=== PATIENT | female | born 1930 | race Caucasian/White ===

== ENCOUNTER 2017-02-24 08:06 | Emergency (ER) | payer MEDICARE, BC, OTHER ==
--- NOTE | 2017-02-24 08:15 | ER Document Report ---
ED General - General Stated Complaint: FALL HIP PAIN Time Seen by Provider: 02/24/17 08:13 Mode of Arrival: Medic Information source: Patient, Emergency Med Personnel Notes: 86-year-old female after a mechanical fall complaining of head injury mild neck pain left hip pain and left ankle pain. Patient notes she was in too much pain to stand. Denies any other injuries TRAVEL OUTSIDE OF THE [place] IN LAST 30 DAYS: No - HPI Onset: Just prior to arrival Onset/Duration: Sudden Quality of pain: Achy Severity: Mild Pain Level: 1 Associated symptoms: Body/muscle aches Exacerbated by: Movement Relieved by: Denies Similar symptoms previously: No Recently seen / treated by doctor: No - Related Data Allergies/Adverse Reactions: chlorpheniramine maleate [From Ornade] Allergy (Verified 02/24/17 09:30) codeine [Codeine] Allergy (Verified 02/24/17 09:30) itching meclizine HCl [From Antivert] Allergy (Verified 02/24/17 09:30) phenylpropanolamine HCl [From Ornade] Allergy (Verified 02/24/17 09:30) propoxyphene HCl [From Darvon] Allergy (Verified 02/24/17 09:30) tetracycline [Tetracycline] Allergy (Verified 02/24/17 09:30) Any Verts Allergy (Uncoded 02/24/17 09:30) Past Medical History - Social History Smoking Status: Never Smoker Cigarette use (# per day): No Chew tobacco use (# tins/day): No Smoking Education Provided: No Family History: Reviewed & Not Pertinent, Other - Past Medical History Cardiac Medical History: Reports: Hx Atrial Fibrillation, Hx Heart Attack - 1996 ?STENT, Hx Hypertension - MEDS Denies: Hx Heart Murmur Pulmonary Medical History: Reports: Hx Bronchitis, Hx Pneumonia Denies: Hx Asthma, Hx Respiratory Failure, Hx Sleep Apnea, Hx Tuberculosis Neurological Medical History: Denies: Hx Cerebrovascular Accident, Hx Seizures Endocrine Medical History: Reports: Hx Diabetes Mellitus Type 1, Hx Diabetes Mellitus Type 2 Renal/ Medical History: Malignancy Medical History: GI Medical History: Denies: Hx Hepatitis, Hx Hiatal Hernia, Hx Ulcer Musculoskeltal Medical History: Reports Hx Arthritis Psychiatric Medical History: Reports: Hx Depression Traumatic Medical History: Infectious Medical History: Denies: Hx Hepatitis Past Surgical History: Reports: Hx Appendectomy, Hx Cardiac Catheterization, Hx Cardiac Surgery - Cath, Hx Cholecystectomy, Hx Hysterectomy. Denies: Hx Mastectomy, Hx Open Heart Surgery, Hx Pacemaker - Immunizations Hx Diphtheria, Pertussis, Tetanus Vaccination: Yes Hx Pneumococcal Vaccination: 10/04/09 Review of Systems - Review of Systems Notes: PHYSICAL EXAMINATION: GENERAL: Well-appearing, well-nourished and in no acute distress. C collar in place. GCS 15 HEAD: Left lateral occipital hematomas 2 EYES: Pupils equal round and reactive to light, extraocular movements intact, sclera anicteric, conjunctiva are normal. ENT: Nares patent, oropharynx clear without exudates. Moist mucous membranes. No hemanotympanum . No blood in nares. No dental fracture NECK: Normal range of motion, supple without lymphadenopathy. Trachea midline LUNGS: Breath sounds clear to auscultation bilaterally and equal. No wheezes rales or rhonchi. HEART: Regular rate and rhythm without murmurs. Pulses intact all throughout. ABDOMEN: Soft, nontender, nondistended abdomen. No guarding, no rebound. No masses appreciated. Musculoskeletal: Left hip is tender no inversion or eversion of left lower extremity. Tenderness of the left ankle with mild edema no obvious deformity NEUROLOGICAL: Cranial nerves grossly intact. Normal speech, normal gait. Normal sensory, motor, and reflex exams. PSYCH: Normal mood, normal affect. SKIN: Warm, No active bleeding U/S fast exam notes no obvious free fluid but this is a nondiagnostic evaluation Physical Exam - Vital signs Vitals: Resp 18 02/24/17 08:10 Course - Re-evaluation Re-evalutation: 02/24/17 08:36 Lab work imaging is pending at this time 02/24/17 11:06 imaging noted so significant abnormaltiy, old cva noted, family made aware will dc home as patient feels much better and wishes to go home After performing a Medical Screening Examination, I estimate there is LOW risk for ACUTE APPENDICITIS, BOWEL OBSTRUCTION, ACUTE CHOLECYSTITIS, PERFORATED DIVERTICULITIS, INCARCERATED HERNIA, PANCREATITIS, PELVIC INFLAMMATORY DISEASE, PERFORATED ULCER, ECTOPIC , or TUBO-OVARIAN ABSCESS, thus I consider the discharge disposition reasonable. Also, there is no evidence or peritonitis , sepsis, or toxicity. I have reevaluated this patient multiple times and no significant life threatening changes are noted. The patient and I have discussed the diagnosis and risks, and we agree with discharging home with close follow-up with the understanding that symptoms and presentations can change. We also discussed returning to the Emergency Department immediately if new or worsening symptoms occur. We have discussed the symptoms which are most concerning (e.g., bloody stool, fever, changing or worsening pain, vomiting) that necessitate immediate return. - Vital Signs Vital signs: Temp Pulse Resp BP Pulse Ox 98.1 F 18 137/51 H 93 02/24/17 08:16 02/24/17 10:01 02/24/17 10:01 02/24/17 10:01 - Laboratory Result Diagrams: 02/24/17 08:40 02/24/17 08:40 Laboratory results interpreted by me: 02/24/17 02/24/17 08:40 08:40 RDW 16.6 H Plt Count 103 L Lymphocytes % 12.9 L Glucose 219 H - Diagnostic Test Radiology reviewed: Image reviewed, Reports reviewed Discharge - Discharge Clinical Impression: Hip pain, left Ankle pain, left Qualifiers: Chronicity: acute Qualified Code(s): M25.572 - Pain in left ankle and joints of left foot Fall Qualifiers: Encounter type: initial encounter Qualified Code(s): W19.XXXA - Unspecified fall, initial encounter Atrial fibrillation Qualifiers: Atrial fibrillation type: chronic Qualified Code(s): I48.2 - Chronic atrial fibrillation Condition: Stable Disposition: HOME, SELF-CARE Instructions: Vladimir Wrap ([facility]) Prescriptions: Hydrocodone/Acetaminophen [[place] 5-325 mg Tablet] 1 tab PO Q6 #20 tablet Referrals: AL CROW MD [Primary Care Provider] - Follow up tomorrow
[2017-02-24] MEDS ORDERED: HYDROCODONE/ACETAMINOPHEN 5-325 MG TABLET PO ONE (08:16)
[2017-02-24 08:47] LABS: ABSOLUTE BASOPHILS # (AUTO) 0.1 10^3/uL (0.0-0.2); ABSOLUTE LYMPHOCYTES (AUTO) 1.3 10^3/uL (0.5-4.7); ABSOLUTE MONOCYTES (AUTO) 1.1 10^3/uL (0.1-1.4); ABSOLUTE NEUT (AUTO) 7.7 10^3/uL (1.7-8.2); BASOPHILS % (AUTO) 0.8 % (0-2); EOSINOPHILS % (AUTO) 0.2 % (0-6); HEMATOCRIT 36.7 % (36.0-47.0); HEMOGLOBIN 12.4 g/dL (12.0-15.5); HGB HCT DIFFERENCE 0.5; LYMPHOCYTES % (AUTO) 12.9 % (13-45); MEAN CORPUSCULAR HEMOGLOBIN 28.5 pg (27.0-33.4); MEAN CORPUSCULAR HGB CONC 33.8 g/dL (32.0-36.0); MEAN CORPUSCULAR VOLUME 84 fl (80-97); MONOCYTES % (AUTO) 10.7 % (3-13); RED BLOOD COUNT 4.36 10^6/uL (3.72-5.28); RED CELL DISTRIBUTION WIDTH 16.6 % (11.5-14.0); SEGMENTED NEUTROPHILS % (AUTO) 75.4 % (42-78); WHITE BLOOD COUNT 10.2 10^3/uL (4.0-10.5)
[2017-02-24 09:06] LABS: ALANINE AMINOTRANSFERASE 30 U/L (9-52); ALKALINE PHOSPHATASE 46 U/L (38-126); ANION GAP 12 (5-19); ASPARTATE AMINO TRANSFERASE 22 U/L (14-36); BILIRUBIN,DIRECT 0.4 mg/dL (0.0-0.4); BILIRUBIN,TOTAL 0.7 mg/dL (0.2-1.3); BLOOD UREA NITROGEN 17 mg/dL (7-20); CALCIUM 9.8 mg/dL (8.4-10.2); CARBON DIOXIDE 26 mmol/L (22-30); CHLORIDE 103 mmol/L (98-107); CREATININE RESULT 0.65 mg/dL (0.52-1.25); GLUCOSE 219 mg/dL (75-110); POTASSIUM 4.1 mmol/L (3.6-5.0); SODIUM 140.5 mmol/L (137-145); TOTAL PROTEIN 7.7 g/dL (6.3-8.2)
--- NOTE | 2017-02-24 09:20 | RADIOLOGY REPORT (SQ) ---
EXAM DESCRIPTION: ANKLE LEFT COMPLETE COMPLETED DATE/TIME: 02/24/2017 9:08 am REASON FOR STUDY: fall COMPARISON: None. NUMBER OF VIEWS: Three views. TECHNIQUE: AP, lateral, and oblique radiographic images acquired of the left ankle. LIMITATIONS: None. FINDINGS: MINERALIZATION: Normal. BONES: No acute fracture or dislocation. No worrisome bone lesions. JOINTS: No effusions. SOFT TISSUES: Soft tissue swelling. No foreign body. OTHER: No other significant finding. IMPRESSION: SOFT TISSUE SWELLING. NO ACUTE BONY FINDINGS. TECHNICAL DOCUMENTATION: JOB ID: [id number] [employer]- All Rights Reserved
--- NOTE | 2017-02-24 10:29 | RADIOLOGY REPORT (SQ) ---
EXAM DESCRIPTION: CT CERVICAL SPINE WITHOUT COMPLETED DATE/TIME: 02/24/2017 9:37 am REASON FOR STUDY: fall COMPARISON: None. TECHNIQUE: Axial images acquired through the cervical spine without intravenous contrast. Images re viewed with lung, soft tissue and bone windows. Reconstructed coronal and sagittal MPR images review ed. Images stored on PACS. All CT scanners at this facility use dose modulation, iterative reconstruction, and/or weight based d osing when appropriate to reduce radiation dose to as low as reasonably achievable (ALARA). [facility]: Dose Right [facility]: CareDose [facility]: Dose Right [facility]: Teradose 4D [facility]: Genemation RADIATION DOSE: 19.63 mGy. LIMITATIONS: None. FINDINGS: ALIGNMENT: Anatomic. MINERALIZATION: Normal. VERTEBRAL BODIES: No fractures or dislocation. Incidental cortical bone island in the C1 vertebra. DISCS: Multilevel disc space narrowing with osteophytes. FACETS, LATERAL MASSES, POSTERIOR ELEMENTS: Facet arthropathy. No fractures. No dislocation. No ac osage findings. HARDWARE: None in the spine. VISUALIZED RIBS: No fractures. LUNG APICES AND SOFT TISSUES: No significant or acute findings. OTHER: No other significant finding. IMPRESSION: CHRONIC DEGENERATIVE CHANGES. NO ACUTE FINDINGS. TECHNICAL DOCUMENTATION: JOB ID: [id number] Quality ID # [id number]: Final reports with documentation of one or more dose reduction techniques (e.g., Au tomated exposure control, adjustment of the mA and/or kV according to patient size, use of iterative reconstruction technique) 2010 [employer]- All Rights Reserved
--- NOTE | 2017-02-24 10:33 | RADIOLOGY REPORT (SQ) ---
EXAM DESCRIPTION: CT HEAD WITHOUT COMPLETED DATE/TIME: 02/24/2017 9:36 am REASON FOR STUDY: fall COMPARISON: 10/26/2013. TECHNIQUE: Axial images acquired through the brain without intravenous contrast. Images reviewed wi th bone, brain and subdural windows. Images stored on PACS. All CT scanners at this facility use dose modulation, iterative reconstruction, and/or weight based d osing when appropriate to reduce radiation dose to as low as reasonably achievable (ALARA). [facility]: Dose Right [facility]: CareDose [facility]: Dose Right [facility]: Teradose 4D [facility]: Cynvec RADIATION DOSE: 64.61 mGy. LIMITATIONS: None. FINDINGS: VENTRICLES: Normal size and contour. CEREBRUM: No masses. No hemorrhage. No midline shift. Normal rodriguez/white matter differentiation. F ocal area of decreased attenuation in the right frontal lobe. CEREBELLUM: No masses. No hemorrhage. No alteration of density. No evidence for acute infarction. EXTRAAXIAL SPACES: No fluid collections. No masses. ORBITS AND GLOBE: No intra- or extraconal masses. Normal contour of globe without masses. CALVARIUM: No fracture. PARANASAL SINUSES: No fluid or mucosal thickening. SOFT TISSUES: No mass or hematoma. OTHER: No other significant finding. IMPRESSION: FOCAL AREA OF DECREASED ATTENUATION IN THE RIGHT FRONTAL LOBE. THIS HAS APPEARANCE OF A N OLD INFARCT ALTHOUGH NOT PRESENT IN OCTOBER 2013. NO ACUTE TRAUMATIC FINDINGS. TECHNICAL DOCUMENTATION: JOB ID: [id number] Quality ID # 436: Final reports with documentation of one or more dose reduction techniques (e.g., Au tomated exposure control, adjustment of the mA and/or kV according to patient size, use of iterative reconstruction technique) 2010 [employer]- All Rights Reserved
--- NOTE | 2017-02-24 10:36 | RADIOLOGY REPORT (SQ) ---
EXAM DESCRIPTION: CT CHEST WITHOUT COMPLETED DATE/TIME: 02/24/2017 9:38 am REASON FOR STUDY: fall COMPARISON: 08/14/2016. TECHNIQUE: CT scan performed of the chest without intravenous contrast. Images reviewed with lung, soft tissue and bone windows. Reconstructed coronal and sagittal MPR images reviewed. All images st ored on PACS. All CT scanners at this facility use dose modulation, iterative reconstruction, and/or weight based d osing when appropriate to reduce radiation dose to as low as reasonably achievable (ALARA). [facility]: Dose Right [facility]: CareDose [facility]: Dose Right [facility]: Teradose 4D [facility]: Celtaxsys RADIATION DOSE: 7.48 mGy. LIMITATIONS: No technical limitations. FINDINGS: LUNGS AND PLEURA: Stable chronic scarring. No masses, infiltrates, pneumothorax. No pleu ral effusions, calcifications. HILAR AND MEDIASTINAL STRUCTURES: No identified masses or abnormal nodes. No obvious aneurysm. HEART AND VASCULAR STRUCTURES: No aneurysm. No pericardial effusion. UPPER ABDOMEN: No significant findings. Limited exam. THYROID AND OTHER SOFT TISSUES: No masses. No adenopathy. BONES: No significant finding. HARDWARE: None in the chest. OTHER: No other significant findings. IMPRESSION: STABLE CHRONIC SCARRING. NO ACUTE FINDING ON NON-CONTRASTED CHEST CT. TECHNICAL DOCUMENTATION: JOB ID: [id number] Quality ID # [id number]: Final reports with documentation of one or more dose reduction techniques (e.g., Au tomated exposure control, adjustment of the mA and/or kV according to patient size, use of iterative reconstruction technique) 2010 [employer]- All Rights Reserved
--- NOTE | 2017-02-24 10:42 | RADIOLOGY REPORT (SQ) ---
EXAM DESCRIPTION: CT ABD/PELVIS NO ORAL OR IV COMPLETED DATE/TIME: 02/24/2017 9:36 am REASON FOR STUDY: FALL left hip pain COMPARISON: 09/11/2013. TECHNIQUE: CT scan of the abdomen and pelvis performed without intravenous or oral contrast. Images reviewed with lung, soft tissue, and bone windows. Reconstructed coronal and sagittal MPR images revi ewed. All images stored on PACS. All CT scanners at this facility use dose modulation, iterative reconstruction, and/or weight based d osing when appropriate to reduce radiation dose to as low as reasonably achievable (ALARA). [facility]: Dose Right [facility]: CareDose [facility]: Dose Right [facility]: Teradose 4D [facility]: Streamline RADIATION DOSE: 8mGy. LIMITATIONS: None. FINDINGS: LOWER CHEST: No significant findings. No nodules or infiltrates. NON-CONTRASTED LIVER, SPLEEN, ADRENALS: Evaluation limited by lack of IV contrast. No identified sign ificant masses. PANCREAS: No masses. No peripancreatic inflammatory changes. GALLBLADDER: Surgically absent. RIGHT KIDNEY AND URETER: No suspicious masses. Assessment limited by lack of IV contrast. No signif icant calcifications. Stable extrarenal pelvis. No hydronephrosis or hydroureter. LEFT KIDNEY AND URETER: Stable cortical cyst. No suspicious masses. Assessment limited by lack of IV contrast. No significant calcifications. Stable extrarenal pelvis. No hydronephrosis or hydrour eter. AORTA AND RETROPERITONEUM: No aneurysm. No retroperitoneal masses or adenopathy. BOWEL AND PERITONEAL CAVITY: Colonic diverticulosis. No obvious masses or inflammatory changes. No f ree fluid. APPENDIX: Surgically absent. PELVIS, BLADDER, AND ABDOMINAL WALL:No abnormal masses. No free fluid. Bladder normal. BONES: No significant findings. Degenerative changes in the spine. OTHER: No other significant finding. IMPRESSION: 1. COLONIC DIVERTICULOSIS. NO CT FINDINGS OF ACUTE DIVERTICULITIS. 2. STABLE CORTICAL CYST IN THE LEFT KIDNEY. 3. CHRONIC DEGENERATIVE CHANGES IN THE LUMBAR SPINE. 4. NO ACUTE FINDINGS. TECHNICAL DOCUMENTATION: JOB ID: [id number] Quality ID # [id number]: Final reports with documentation of one or more dose reduction techniques (e.g., Au tomated exposure control, adjustment of the mA and/or kV according to patient size, use of iterative reconstruction technique) 2010 [employer]- All Rights Reserved
[2017-02-24 11:41] VITALS: BP 122/54
--- NOTE | 2017-02-24 13:36 | EKG REPORT ---
SEVERITY:- ABNORMAL ECG - ATRIAL FIBRILLATION : Confirmed by: Krishna Nathan MD 24-Feb-2017 13:34:28
== END 2017-02-24 11:56 | disposition home or self-care (01) ==
LOC: ER 08:06
DX: M25.552 Pain in left hip (principal); M25.572 Pain in left ankle and joints of left foot; S09.90XA Unspecified injury of head, initial encounter; M54.2 Cervicalgia; I48.2 Chronic atrial fibrillation; W19.XXXA Unspecified fall, initial encounter
CPT/HCPCS: 93005; 99284; 36415; 82962; 85025; 80053; 73610; 70450; 71250; 72125; 74176; 93010; A9270

== ENCOUNTER → 2017-03-05 | Outpatient (CLI) | payer MEDICARE, BC, OTHER ==
--- NOTE | 2017-03-05 09:37 | RADIOLOGY REPORT (SQ) ---
EXAM DESCRIPTION: MRI HEAD WITHOUT COMPLETED DATE/TIME: 03/05/2017 9:11 am REASON FOR STUDY: CEREBRAL INFARCTION, UNSPEC (I63.9) I63.9 CEREBRAL INFARCTION, UNSPECIFIED M48.06 SPINAL STENOSIS, LUMBAR REGION COMPARISON: None. TECHNIQUE: Multiplanar imaging includes non-contrasted T1, T2, FLAIR, and Diffusion with ADC map seq uences. Images stored on PACS. LIMITATIONS: None. FINDINGS: ANATOMY: No anomalies. Normal vascular flow voids. Pituitary fossa normal. CSF SPACES: Normal in size and contour. No hemorrhage. CEREBRUM: Hemosiderin staining associated with old watershed infarct along the right sylvian fissure. A few high-signal intensity lesions scattered throughout the white matter on FLAIR imaging with dis tribution suggesting chronic micro-vascular ischemic change. Sulci and gyri normal in size and conto ur. No evidence of hemorrhage, mass or extraaxial fluid collection. POSTERIOR FOSSA: No signal alteration. No hemorrhage. No edema, masses or mass effect. Internal cachorro tory canals, cerebello-pontine angles, mastoids normal. DIFFUSION: Negative for acute or sub-acute infarction. ORBITS: No masses. Globes normal. PARANASAL SINUSES: No fluid levels. Mucosa normal. OTHER: No other significant finding. IMPRESSION: Old right MCA territory infarct. No acute findings. TECHNICAL DOCUMENTATION: JOB ID: [id number] [employer]- All Rights Reserved
--- NOTE | 2017-03-05 10:27 | RADIOLOGY REPORT (SQ) ---
EXAM DESCRIPTION: MRI LUMBAR SPINE WITHOUT COMPLETED DATE/TIME: 03/05/2017 9:11 am REASON FOR STUDY: SPINAL STENOSIS, LUMBAR REGION (M48.06) I63.9 CEREBRAL INFARCTION, UNSPECIFIED M4 8.06 SPINAL STENOSIS, LUMBAR REGION COMPARISON: 07/13/2011 TECHNIQUE: Sagittal and Axial imaging includes T1, T2, STIR and gradient echo sequences. Coronal T2/ HASTE imaging. LIMITATIONS: Patient motion. FINDINGS: VISUALIZED UPPER ABDOMEN: Limited evaluation. No acute or suspicious findings suggested. SEGMENTATION: No transitional anatomy. The lowest well-developed disc space is labeled L5-S1. ALIGNMENT: Unchanged moderate convex right scoliosis. Grade 1 spondylolisthesis L1-2 and L4-5. VERTEBRAE: Intact. BONE MARROW: Normal. No marrow replacement or reactive changes. DISC SIGNAL: Desiccation multiple levels. POSTERIOR ELEMENTS: Intact. HARDWARE: None in the spine. CORD AND CONUS: Normal in size and signal intensity. Conus at the appropriate level. SOFT TISSUES: No aortic aneurysm seen. No bulky retroperitoneal adenopathy or mass. No paraspinal mas s or fluid. L1-L2: Ventral impression on the thecal sac due to disc osteophyte complex. L2-L3: Ventral impression on the thecal sac due to disc osteophyte complex. L3-L4: Chronic endplate change. Ventral and dorsal impression on the thecal sac due to disc osteophy te complex, ligament thickening and facet arthropathy. Narrowing of the right lateral recess. Disc material contacts the exiting left L3 nerve root in the neural foramen. L4-L5: Ventral and dorsal nerve root contact due to disc osteophyte complex, ligament thickening and facet arthropathy. Disc material contacts the exiting right L4 nerve root in the neural foramen. L5-S1: Disc bulge and facet arthropathy. Mild narrowing spinal canal. Mild right neural foraminal n arrowing. LOWER THORACIC: Incompletely imaged. No stenosis seen. SACRUM: Visualized upper sacrum intact. OTHER: No other significant findings. IMPRESSION: Spondylosis, facet arthropathy and malalignment. Spinal stenosis at multiple levels, mo st severe at L4-5. TECHNICAL DOCUMENTATION: JOB ID: [id number] [employer]- All Rights Reserved
== END ==
LOC: RAD 07:17
PROVIDERS: ATTEND Internal Medicine
DX: I63.9 Cerebral infarction, unspecified (principal); M48.06 Spinal stenosis, lumbar region
CPT/HCPCS: 70551; 72148

== ENCOUNTER 2017-09-29 04:09 | Observation (INO) | payer MEDICARE, BC, OTHER ==
[2017-09-29] MEDS ORDERED: ASPIRIN 81 MG TABLET, CHEWABLE PO ONE (04:14)
[2017-09-29] MEDS ORDERED: ACETAMINOPHEN 325 MG TABLET PO ONE (04:30)
[2017-09-29 04:32] LABS: ABSOLUTE BASOPHILS # (AUTO) 0.1 10^3/uL (0.0-0.2); ABSOLUTE EOSINOPHILS # (AUTO) 0.1 10^3/uL (0.0-0.6); ABSOLUTE LYMPHOCYTES (AUTO) 2.2 10^3/uL (0.5-4.7); ABSOLUTE MONOCYTES (AUTO) 1.2 10^3/uL (0.1-1.4); ABSOLUTE NEUT (AUTO) 3.6 10^3/uL (1.7-8.2); BASOPHILS % (AUTO) 1.4 % (0-2); EOSINOPHILS % (AUTO) 0.8 % (0-6); HEMATOCRIT 39.4 % (36.0-47.0); HEMOGLOBIN 13.3 g/dL (12.0-15.5); MEAN CORPUSCULAR HEMOGLOBIN 28.5 pg (27.0-33.4); MEAN CORPUSCULAR HGB CONC 33.8 g/dL (32.0-36.0); MEAN CORPUSCULAR VOLUME 84 fl (80-97); MONOCYTES % (AUTO) 16.4 % (3-13); PLATELET COUNT 126 10^3/uL (150-450); RED BLOOD COUNT 4.66 10^6/uL (3.72-5.28); RED CELL DISTRIBUTION WIDTH 16.5 % (11.5-14.0); SEGMENTED NEUTROPHILS % (AUTO) 50.4 % (42-78); TOTAL CELLS COUNTED % (AUTO) 100 %; WHITE BLOOD COUNT 7.2 10^3/uL (4.0-10.5)
[2017-09-29] MEDS ORDERED: NITROGLYCERIN 2% OINTMENT 1 GM PACKET TP ONE (04:34)
--- NOTE | 2017-09-29 04:38 | ER Document Report ---
ED Cardiac - General Chief Complaint: Chest Pain Stated Complaint: CHEST PAIN Time Seen by Provider: 09/29/17 04:17 Mode of Arrival: Medic Information source: Patient Notes: Patient reports that she was lying in bed and developed chest pain around 130 this evening. Patient took a nitroglycerin tablet at home and called EMS. Patient states that EMS gave her an additional 2 tablets of nitroglycerin. Patient's chest pain initially was a 5 and is currently at a level 1. Patient reports some nausea but denies any vomiting or diarrhea. Patient denies any cough or recent cold symptoms. Patient does report a distant history of VT 20 years ago. TRAVEL OUTSIDE OF THE [place] IN LAST 30 DAYS: No - HPI Patient complains to provider of: Chest pain. denies: Shortness of breath Chest pain location: Substernal Quality of pain: Achy Severity now: Mild Severity at worst: Severe Pain level currently: 1 Chest pain precipitating factors: At Rest Cardiac risk factors: Diabetes, Hypertension, Hx VT Associated symptoms: Nausea/vomiting. denies: Back pain, Edema, Headache, Neck pain, Shortness of breath Exacerbated by: Denies Relieved by: Nothing Similar symptoms previously: Yes Recently seen / treated by doctor: No - Related Data Allergies/Adverse Reactions: chlorpheniramine maleate [From Ornade] Allergy (Verified 02/24/17 09:30) codeine [Codeine] Allergy (Verified 02/24/17 09:30) itching meclizine HCl [From Antivert] Allergy (Verified 02/24/17 09:30) phenylpropanolamine HCl [From Ornade] Allergy (Verified 02/24/17 09:30) propoxyphene HCl [From Darvon] Allergy (Verified 02/24/17 09:30) tetracycline [Tetracycline] Allergy (Verified 02/24/17 09:30) Any Verts Allergy (Uncoded 02/24/17 09:30) Past Medical History - General Information source: Patient - Social History Smoking Status: Former Smoker Chew tobacco use (# tins/day): No Frequency of alcohol use: Occasional Drug Abuse: None Lives with: Alone Family History: Reviewed & Not Pertinent, Other Patient has suicidal ideation: No Patient has homicidal ideation: No - Past Medical History Cardiac Medical History: Reports: Hx Atrial Fibrillation, Hx Heart Attack - 1996 ?STENT, Hx Hypertension - MEDS Denies: Hx Heart Murmur Pulmonary Medical History: Reports: Hx Bronchitis, Hx Pneumonia Denies: Hx Asthma, Hx Respiratory Failure, Hx Sleep Apnea, Hx Tuberculosis Neurological Medical History: Denies: Hx Cerebrovascular Accident, Hx Seizures Endocrine Medical History: Reports: Hx Diabetes Mellitus Type 1, Hx Diabetes Mellitus Type 2 Renal/ Medical History: Denies: Hx Peritoneal Dialysis Malignancy Medical History: GI Medical History: Denies: Hx Hepatitis, Hx Hiatal Hernia, Hx Pancreatitis, Hx Ulcer Musculoskeltal Medical History: Reports Hx Arthritis Psychiatric Medical History: Reports: Hx Depression Traumatic Medical History: Infectious Medical History: Denies: Hx Hepatitis Past Surgical History: Reports: Hx Appendectomy, Hx Cardiac Catheterization, Hx Cardiac Surgery - Cath, Hx Cholecystectomy, Hx Hysterectomy. Denies: Hx Mastectomy, Hx Open Heart Surgery, Hx Pacemaker - Immunizations Hx Diphtheria, Pertussis, Tetanus Vaccination: Yes Hx Pneumococcal Vaccination: 10/04/09 Review of Systems - Review of Systems Constitutional: No symptoms reported. denies: Fever, Recent illness EENT: No symptoms reported Cardiovascular: Chest pain. denies: Palpitations, Syncope Respiratory: No symptoms reported. denies: Cough, Short of breath Gastrointestinal: Abdominal pain, Nausea, Vomiting. denies: Diarrhea Genitourinary: No symptoms reported Female Genitourinary: No symptoms reported Musculoskeletal: No symptoms reported Skin: No symptoms reported Hematologic/Lymphatic: No symptoms reported Neurological/Psychological: Headaches Physical Exam - Vital signs Vitals: Resp 19 09/29/17 04:24 - General General appearance: Appears well, Alert In distress: None - HEENT Head: Normocephalic, Atraumatic Eyes: Normal Nasal: Normal Mouth/Lips: Normal Mucous membranes: Normal Neck: Normal, Supple. No: Lymphadenopathy - Respiratory Respiratory status: No respiratory distress Chest status: Nontender Breath sounds: Normal. No: Rales, Rhonchi, Stridor, Wheezing Chest palpation: Normal - Cardiovascular Rhythm: Regular Heart sounds: S1 appreciated, S2 appreciated Murmur: No - Abdominal Inspection: Normal Distension: No distension Bowel sounds: Normal Tenderness: Tender - epigastric Organomegaly: No organomegaly - Back Back: Normal, Nontender. No: CVA tenderness - Extremities General upper extremity: Normal inspection, Normal ROM General lower extremity: Normal inspection, Normal ROM. No: Edema - Neurological Neuro grossly intact: Yes Cognition: Normal Raegan Coma Scale Eye Opening: Spontaneous Raegan Coma Scale Verbal: Oriented [place] Coma Scale Motor: Obeys Commands Raegan Coma Scale Total: 15 - Psychological Associated symptoms: Normal affect, Normal mood - Skin Skin Temperature: Warm Skin Moisture: Dry Skin Color: Normal Course - Re-evaluation Re-evalutation: 09/29/17 06:09 Patient presently denies any chest pain at this time. Vital signs stable. Patient does complain of headache. Consulted with Dr. Gallardo regarding patient presentation, does recommend consultation with patient's primary doctor for admission. Spoke with Dr. Posadas who does agree to bring patient in as a telemetry observation. - Vital Signs Vital signs: Temp Pulse Resp BP Pulse Ox 18 158/63 H 09/29/17 06:27 09/29/17 06:27 - Laboratory Result Diagrams: 09/29/17 04:20 09/29/17 04:20 Laboratory results interpreted by me: 09/29/17 09/29/17 09/29/17 04:20 04:20 04:20 RDW 16.5 H Plt Count 126 L Monocytes % 16.4 H Glucose 150 H Calcium 10.4 H Magnesium 1.3 L Creatine Kinase 22 L 09/29/17 06:09 Labs- Entire Visit 09/29/17 09/29/17 09/29/17 04:20 04:20 04:20 WBC 7.2 RBC 4.66 Hgb 13.3 Hct 39.4 MCV 84 MCH 28.5 MCHC 33.8 RDW 16.5 H Plt Count 126 L Seg Neutrophils % 50.4 Lymphocytes % 31.0 Monocytes % 16.4 H Eosinophils % 0.8 Basophils % 1.4 Absolute Neutrophils 3.6 Absolute Lymphocytes 2.2 Absolute Monocytes 1.2 Absolute Eosinophils 0.1 Absolute Basophils 0.1 Sodium 141.7 Potassium 3.6 Chloride 100 Carbon Dioxide 29 Anion Gap 13 BUN 20 Creatinine 0.65 Est GFR ( Amer) > 60 Est GFR (Non-Af Amer) > 60 Glucose 150 H Calcium 10.4 H Magnesium Total Bilirubin 0.4 Direct Bilirubin 0.3 Neonat Total Bilirubin Not Reportable Neonat Direct Bilirubin Not Reportable Neonat Indirect Bili Not Reportable AST 23 ALT 18 Alkaline Phosphatase 45 Creatine Kinase 22 L CK-MB (CK-2) 0.72 Troponin I < 0.012 Total Protein 7.9 Albumin 4.1 Lipase 09/29/17 04:20 WBC RBC Hgb Hct MCV MCH MCHC RDW Plt Count Seg Neutrophils % Lymphocytes % Monocytes % Eosinophils % Basophils % Absolute Neutrophils Absolute Lymphocytes Absolute Monocytes Absolute Eosinophils Absolute Basophils Sodium Potassium Chloride Carbon Dioxide Anion Gap BUN Creatinine Est GFR ( Amer) Est GFR (Non-Af Amer) Glucose Calcium Magnesium 1.3 L Total Bilirubin Direct Bilirubin Neonat Total Bilirubin Neonat Direct Bilirubin Neonat Indirect Bili AST ALT Alkaline Phosphatase Creatine Kinase CK-MB (CK-2) Troponin I Total Protein Albumin Lipase 186.8 - Diagnostic Test Radiology reviewed: Reports reviewed Discharge - Discharge Clinical Impression: Hypomagnesemia Chest pain Qualifiers: Chest pain type: unspecified Qualified Code(s): R07.9 - Chest pain, unspecified Condition: Stable Disposition: ADMITTED OBSERVATION [facility] Admitted: Telemetry
[2017-09-29 04:43] LABS: ALANINE AMINOTRANSFERASE 18 U/L (9-52); ALBUMIN 4.1 g/dL (3.5-5.0); ALKALINE PHOSPHATASE 45 U/L (38-126); ANION GAP 13 (5-19); ASPARTATE AMINO TRANSFERASE 23 U/L (14-36); BILIRUBIN,DIRECT 0.3 mg/dL (0.0-0.4); BILIRUBIN,TOTAL 0.4 mg/dL (0.2-1.3); BLOOD UREA NITROGEN 20 mg/dL (7-20); CALCIUM 10.4 mg/dL (8.4-10.2); CARBON DIOXIDE 29 mmol/L (22-30); CHLORIDE 100 mmol/L (98-107); CREATINE KINASE 22 U/L (30-135); GLUCOSE 150 mg/dL (75-110); POTASSIUM 3.6 mmol/L (3.6-5.0); SODIUM 141.7 mmol/L (137-145); TOTAL PROTEIN 7.9 g/dL (6.3-8.2)
[2017-09-29 04:54] LABS: CREATINE KINASE MB 0.72 ng/mL (<4.55)
[2017-09-29 05:02] LABS: TROPONIN I < 0.012 ng/mL
[2017-09-29 05:03] LABS: LIPASE 186.8 U/L (23-300); MAGNESIUM 1.3 mg/dL (1.6-2.3)
--- NOTE | 2017-09-29 05:09 | RADIOLOGY REPORT (SQ) ---
EXAM DESCRIPTION: CHEST SINGLE VIEW CLINICAL HISTORY: CP COMPARISON: 08/14/2016 FINDINGS: Single frontal view of the chest. Atherosclerotic calcification aortic arch. Heart is not enlarged. Low lung volumes. Leads overlie the chest. No consolidation, pneumothorax, or pleural effusion. No displaced rib fractures identified. Upper abdominal soft tissues are unremarkable. IMPRESSION: 1. No acute pulmonary process identified.
[2017-09-29] MEDS ORDERED: MAGNESIUM OXIDE 400 MG TABLET PO ONE (05:46)
[2017-09-29 09:39] VITALS: BP 130/52
[2017-09-29] MEDS ORDERED: NITROGLYCERIN 0.4 MG/TAB 25 TAB/BOTTLE SL PRN (09:41)
[2017-09-29] MEDS ORDERED: (PENDING PHARMACY ID) (Losartan/Hydrochlorothiazide [Hyzaar 100-12.5 Tablet] 1 TAB) PO SCH (10:00)
[2017-09-29] MEDS ORDERED: INSULIN DETEMIR 100 UNIT/ML 3 ML PEN SUBCUT ONE (11:00)
[2017-09-29] MEDS ORDERED: LOSARTAN POTASSIUM 50 MG TABLET PO ONE (11:15)
[2017-09-29] MEDS ORDERED: HYDROCHLOROTHIAZIDE 12.5 MG CAPSULE PO ONE (11:15)
[2017-09-29] MEDS ORDERED: LORATADINE 10 MG TABLET PO ONE (11:15)
[2017-09-29 11:16] LABS: CREATINE KINASE MB 0.81 ng/mL (<4.55)
[2017-09-29 11:18] LABS: TROPONIN I < 0.012 ng/mL
--- NOTE | 2017-09-29 13:42 | PDOC H&P ---
History of Present Illness Admission Date/PCP: 09/29/17 06:18 AL CROW MD History of Present Illness: SABINO GARCIA is a 87 year old female, she came to the emergency room this morning for evaluation of pain involving the right upper extremity, she denies any chest pain or any chest pressure. She was seen in the emergency room and it was stated that she had a chest pain when she arrived in the ER and that she stated that the chest pain was relieved with nitro tablets. I asked patient on the floor specifically if she had any chest pain or any chest pressure she denies having any chest pain or chest pressure she said she was upset when she had the pain in the right upper extremities she thought it could be cardiac on she could emergency room for evaluation of the symptoms she was experiencing. The pain she is manifesting is not typically cardiac chest pain and the extremity involved is not typically the upper extremity involved in cardiac chest pains. She probably have cervical radiculopathy, she was admitted, so far 3 sets of cardiac enzymes are negative for acute CO. She will be discharged home today Past Medical History Cardiac Medical History: Reports: Atrial Fibrillation, Hypertension - MEDS Pulmonary Medical History: Reports: Bronchitis, Pneumonia Endocrine Medical History: Reports: Diabetes Mellitus Type 2 Malignancy Medical History: GI Medical History: Musculoskeltal Medical History: Reports: Arthritis Psychiatric Medical History: Reports: Depression Infectious Medical History: Past Surgical History Past Surgical History: Reports: Appendectomy, Cardiac Catheterization, Cholecystectomy, Hysterectomy Social History Lives with: Alone Smoking Status: Former Smoker Frequency of Alcohol Use: None Hx Recreational Drug Use: No Drugs: None Hx Prescription Drug Abuse: No - Advance Directive Resuscitation Status: Full Code Family History Family History: Reviewed & Not Pertinent, Other Parental Family History Reviewed: Yes Children Family History Reviewed: Yes Sibling(s) Family History Reviewed.: Yes Medication/Allergy Home Medications: Fexofenadine HCl [Dorita] 180 mg PO DAILY 09/29/17 Insulin Aspart [Novolog Flexpen] 0 unit SUBCUT .SLD SCALE 09/29/17 Insulin Detemir [Levemir Flextouch] 20 unit SQ QAM 09/29/17 Losartan/Hydrochlorothiazide [Hyzaar 100-12.5 Tablet] 1 tab PO DAILY 09/29/17 Nitroglycerin [Nitrostat 0.4 mg (1/150 Gr) Tabs 25/Bottle] 1 tab SL Q5MP PRN Allergies/Adverse Reactions: chlorpheniramine maleate [From Ornade] Allergy (Verified 02/24/17 09:30) codeine [Codeine] Allergy (Verified 02/24/17 09:30) itching meclizine HCl [From Antivert] Allergy (Verified 02/24/17 09:30) phenylpropanolamine HCl [From Ornade] Allergy (Verified 02/24/17 09:30) propoxyphene HCl [From Darvon] Allergy (Verified 02/24/17 09:30) tetracycline [Tetracycline] Allergy (Verified 02/24/17 09:30) Any Verts Allergy (Uncoded 02/24/17 09:30) Review of Systems Constitutional: ABSENT: chills, fever(s), headache(s), weight gain, weight loss Eyes: ABSENT: visual disturbances Ears: ABSENT: hearing changes Cardiovascular: PRESENT: chest pain Respiratory: ABSENT: cough, hemoptysis Gastrointestinal: ABSENT: abdominal pain, constipation, diarrhea, hematemesis, hematochezia, nausea, vomiting Genitourinary: ABSENT: dysuria, hematuria Musculoskeletal: ABSENT: joint swelling Integumentary: ABSENT: rash, wounds Neurological: ABSENT: abnormal gait, abnormal speech, confusion, dizziness, focal weakness, syncope Psychiatric: ABSENT: anxiety, depression, homidical ideation, suicidal ideation Endocrine: ABSENT: cold intolerance, heat intolerance, menstrual abnormalities, polydipsia, polyuria Hematologic/Lymphatic: ABSENT: easy bleeding, easy bruising, lymphadenopathy Physical Exam Vital Signs: Temp Pulse Resp BP Pulse Ox 98.2 F 75 18 130/52 H 94 09/29/17 12:21 09/29/17 12:21 09/29/17 12:21 09/29/17 12:21 09/29/17 12:21 Intake & Output 09/28/17 09/29/17 09/30/17 06:59 06:59 06:59 Weight 84.3 kg General appearance: PRESENT: no acute distress, well-developed, well-nourished Head exam: PRESENT: atraumatic, normocephalic Eye exam: PRESENT: conjunctiva pink, EOMI, PERRLA Ear exam: PRESENT: normal external ear exam Mouth exam: PRESENT: moist, tongue midline Neck exam: PRESENT: full ROM Respiratory exam: PRESENT: clear to auscultation skye Cardiovascular exam: PRESENT: RRR, +S1, +S2 Vascular exam: PRESENT: normal capillary refill GI/Abdominal exam: PRESENT: normal bowel sounds, soft Rectal exam: PRESENT: deferred Neurological exam: PRESENT: alert, awake, oriented to person, oriented to place , oriented to time, oriented to situation, CN II-XII grossly intact Psychiatric exam: PRESENT: appropriate affect, normal mood Skin exam: PRESENT: dry, intact, warm Results Laboratory Results: 09/29/17 09/29/17 09/29/17 08:14 10:16 10:16 Creatine Kinase < 20 L CK-MB (CK-2) 0.81 Troponin I 0.018 < 0.012 Impressions: Chest X-Ray 09/29/17 04:14 IMPRESSION: 1. No acute pulmonary process identified. Assessment & Plan - Diagnosis (1) Chest pain Qualifiers: Chest pain type: unspecified Qualified Code(s): R07.9 - Chest pain, unspecified Is this a current diagnosis for this admission?: Yes Plan: Patient was admitted for observation, 3 sets of cardiac enzymes negative
--- NOTE | 2017-09-29 13:45 | PDOC DISCHARGE SUMMARY ---
General - Admit/Disc Date/PCP Admission Date/Primary Care Provider: 09/29/17 06:18 AL CROW MD Discharge Date: 09/29/17 - Discharge Diagnosis (1) Chest pain Is this a current diagnosis for this admission?: Yes - Additional Information Resuscitation Status: Full Code Discharge Activity: Activity As Tolerated Home Medications: Fexofenadine HCl [Dorita] 180 mg PO DAILY 09/29/17 Insulin Aspart [Novolog Flexpen] 0 unit SUBCUT .SLD SCALE 09/29/17 Insulin Detemir [Levemir Flextouch] 20 unit SQ QAM 09/29/17 Losartan/Hydrochlorothiazide [Hyzaar 100-12.5 Tablet] 1 tab PO DAILY 09/29/17 Nitroglycerin [Nitrostat 0.4 mg (1/150 Gr) Tabs 25/Bottle] 1 tab SL Q5MP PRN History of Present Illness History of Present Illness: SABINO GARCIA is a 87 year old female, she came to the emergency room this morning for evaluation of pain involving the right upper extremity, she denies any chest pain or any chest pressure. She was seen in the emergency room and it was stated that she had a chest pain when she arrived in the ER and that she stated that the chest pain was relieved with nitro tablets. I asked patient on the floor specifically if she had any chest pain or any chest pressure she denies having any chest pain or chest pressure she said she was upset when she had the pain in the right upper extremities she thought it could be cardiac on she could emergency room for evaluation of the symptoms she was experiencing. The pain she is manifesting is not typically cardiac chest pain and the extremity involved is not typically the upper extremity involved in cardiac chest pains. She probably have cervical radiculopathy, she was admitted, so far 3 sets of cardiac enzymes are negative for acute CO. She will be discharged home today Hospital Course Hospital Course: Patient was admitted for atypical chest pain, 3 sets of cardiac enzymes were negative for acute CO. She came in this morning, she is stable to be discharged home Physical Exam Vital Signs: Temp Pulse Resp BP Pulse Ox 98.2 F 75 18 130/52 H 94 09/29/17 12:21 09/29/17 12:21 09/29/17 12:21 09/29/17 12:21 09/29/17 12:21 Intake & Output 09/28/17 09/29/17 09/30/17 06:59 06:59 06:59 Weight 84.3 kg General appearance: PRESENT: no acute distress, well-developed, well-nourished Head exam: PRESENT: atraumatic, normocephalic Eye exam: PRESENT: conjunctiva pink, EOMI, PERRLA Ear exam: PRESENT: normal external ear exam Mouth exam: PRESENT: moist, tongue midline Neck exam: PRESENT: full ROM Respiratory exam: PRESENT: clear to auscultation skye Cardiovascular exam: PRESENT: RRR, +S1, +S2 Pulses: PRESENT: normal dorsalis pedis pul, +2 pedal pulses bilateral Vascular exam: PRESENT: normal capillary refill GI/Abdominal exam: PRESENT: normal bowel sounds, soft Rectal exam: PRESENT: deferred Neurological exam: PRESENT: alert, awake, oriented to person, oriented to place , oriented to time, oriented to situation, CN II-XII grossly intact. ABSENT: motor sensory deficit Psychiatric exam: PRESENT: appropriate affect, normal mood Skin exam: PRESENT: dry, intact, warm Results Laboratory Results: 09/29/17 09/29/17 09/29/17 08:14 10:16 10:16 Creatine Kinase < 20 L CK-MB (CK-2) 0.81 Troponin I 0.018 < 0.012 Impressions: Chest X-Ray 09/29/17 04:14 IMPRESSION: 1. No acute pulmonary process identified.
[2017-09-30] MEDS ORDERED: INSULIN DETEMIR 100 UNIT/ML 3 ML PEN SUBCUT SCH (08:00)
--- NOTE | 2017-09-30 08:01 | EKG REPORT ---
SEVERITY:- ABNORMAL ECG - SINUS RHYTHM PROBABLE LEFT ATRIAL ABNORMALITY RIGHT BUNDLE BRANCH BLOCK : Confirmed by: Janette Nielsen MD 30-Sep-2017 08:00:40
[2017-09-30] MEDS ORDERED: LORATADINE 10 MG TABLET PO SCH (10:00)
[2017-09-30] MEDS ORDERED: HYDROCHLOROTHIAZIDE 12.5 MG CAPSULE PO SCH (10:00)
[2017-09-30] MEDS ORDERED: LOSARTAN POTASSIUM 50 MG TABLET PO SCH (10:00)
== END 2017-09-29 15:32 | disposition home or self-care (01) ==
LOC: ER 04:09 → EH 06:18 → 5 09:27
PROVIDERS: ADMIT Internal Medicine; ATTEND Internal Medicine
DX: R07.89 Other chest pain (principal); M79.601 Pain in right arm; I10 Essential (primary) hypertension; E11.9 Type 2 diabetes mellitus without complications; R11.0 Nausea; R10.9 Unspecified abdominal pain; R51 Headache; E83.42 Hypomagnesemia; R10.816 Epigastric abdominal tenderness; I25.2 Old myocardial infarction; Z79.4 Long term (current) use of insulin; Z79.899 Other long term (current) drug therapy; Z87.891 Personal history of nicotine dependence; Z90.49 Acquired absence of other specified parts of digestive tract; Z90.710 Acquired absence of both cervix and uterus
CPT/HCPCS: 93005; 99285; 36415; 82553; 82962; 82550; 83690; 83735; 85025; 80053; 84484; 71010; 93010; A9270 ×3

== ENCOUNTER 2017-12-31 15:04 | Emergency (ER) | payer MEDICARE, BC, OTHER ==
[2017-12-31] MEDS ORDERED: ASPIRIN 81 MG TABLET, CHEWABLE PO ONE (16:25)
--- NOTE | 2017-12-31 17:23 | RADIOLOGY REPORT (SQ) ---
EXAM DESCRIPTION: CHEST SINGLE VIEW COMPLETED DATE/TIME: 12/31/2017 5:12 pm REASON FOR STUDY: cp COMPARISON: 09/29/2017 EXAM PARAMETERS: NUMBER OF VIEWS: One view. TECHNIQUE: Single frontal radiographic view of the chest acquired. RADIATION DOSE: NA LIMITATIONS: None. FINDINGS: LUNGS AND PLEURA: Stable scarring without new opacities, masses or pneumothorax. No pleura l effusion. MEDIASTINUM AND HILAR STRUCTURES: Stable in size and contour. HEART AND VASCULAR STRUCTURES: Heart stable in size. Normal vasculature. BONES: No acute findings. HARDWARE: None in the chest. OTHER: Gas distended stomach/ bowel left upper quadrant. IMPRESSION: NO ACUTE RADIOGRAPHIC FINDING IN THE CHEST. NO SIGNIFICANT CHANGE FROM PRIOR STUDY. TECHNICAL DOCUMENTATION: JOB ID: [id number] [employer]- All Rights Reserved Reading location - IP/workstation name: [email or web address]
[2017-12-31 17:49] LABS: ABSOLUTE BASOPHILS # (AUTO) 0.1 10^3/uL (0.0-0.2); ABSOLUTE LYMPHOCYTES (AUTO) 1.9 10^3/uL (0.5-4.7); ABSOLUTE MONOCYTES (AUTO) 0.8 10^3/uL (0.1-1.4); ABSOLUTE NEUT (AUTO) 4.2 10^3/uL (1.7-8.2); BASOPHILS % (AUTO) 0.8 % (0-2); EOSINOPHILS % (AUTO) 0.7 % (0-6); HEMATOCRIT 43.2 % (36.0-47.0); HEMOGLOBIN 14.5 g/dL (12.0-15.5); LYMPHOCYTES % (AUTO) 27.4 % (13-45); MEAN CORPUSCULAR HEMOGLOBIN 28.8 pg (27.0-33.4); MEAN CORPUSCULAR HGB CONC 33.5 g/dL (32.0-36.0); MEAN CORPUSCULAR VOLUME 86 fl (80-97); MONOCYTES % (AUTO) 11.3 % (3-13); PLATELET COUNT 147 10^3/uL (150-450); RED BLOOD COUNT 5.02 10^6/uL (3.72-5.28); SEGMENTED NEUTROPHILS % (AUTO) 59.8 % (42-78); TOTAL CELLS COUNTED % (AUTO) 100 %
[2017-12-31 18:09] LABS: ALANINE AMINOTRANSFERASE 19 U/L (9-52); ALBUMIN 4.6 g/dL (3.5-5.0); ALKALINE PHOSPHATASE 42 U/L (38-126); ANION GAP 14 (5-19); ASPARTATE AMINO TRANSFERASE 28 U/L (14-36); BILIRUBIN,DIRECT 0.3 mg/dL (0.0-0.4); BILIRUBIN,TOTAL 0.6 mg/dL (0.2-1.3); BLOOD UREA NITROGEN 20 mg/dL (7-20); CALCIUM 10.2 mg/dL (8.4-10.2); CARBON DIOXIDE 30 mmol/L (22-30); CHLORIDE 99 mmol/L (98-107); CREATINE KINASE 62 U/L (30-135); GLUCOSE 235 mg/dL (75-110); POTASSIUM 4.3 mmol/L (3.6-5.0); SODIUM 142.9 mmol/L (137-145); TOTAL PROTEIN 8.4 g/dL (6.3-8.2)
[2017-12-31 18:20] LABS: CREATINE KINASE MB 6.31 ng/mL (<4.55)
[2017-12-31 18:29] LABS: TROPONIN I 1.76 ng/mL
--- NOTE | 2017-12-31 18:47 | EKG REPORT ---
SEVERITY:- ABNORMAL ECG - SINUS RHYTHM PROBABLE LEFT ATRIAL ABNORMALITY RBBB AND LAFB : Confirmed by: Krishna Nathan MD 31-Dec-2017 18:46:12
--- NOTE | 2017-12-31 18:52 | ER Document Report ---
ED General - General Chief Complaint: Chest Pain Stated Complaint: CHEST PAIN Time Seen by Provider: 12/31/17 18:31 Mode of Arrival: Ambulatory Information source: Patient, Relative Notes: 87-year-old female with a history of coronary artery disease, atrial fibrillation, hypertension, previous [place] presents with complaint of chest pain that started 3 hours prior to arrival. Patient states that she was out to lunch earlier and began developing chest tightness. She states she developed difficulty swallowing and became short of breath when another patron came over and perform the Heimlich maneuver thinking she was choking. She states she is still experiencing chest pain and has radiation of pain to the right side of her neck. She denies any associated diaphoresis, nausea, vomiting. She states she has otherwise been well. She does have a distance education coordinator Dr. Mata at [facility] and is resting transfer there. TRAVEL OUTSIDE OF THE [place] IN LAST 30 DAYS: No - HPI Onset: Just prior to arrival Onset/Duration: Sudden Quality of pain: Achy, Pressure Severity: Mild Pain Level: 1 Associated symptoms: Shortness of breath, Other - difficuty swallowing. denies : Nausea, Vomiting Exacerbated by: Denies Relieved by: Denies Similar symptoms previously: No Recently seen / treated by doctor: Yes - Related Data Allergies/Adverse Reactions: chlorpheniramine maleate [From Ornade] Allergy (Verified 12/31/17 15:57) codeine [Codeine] Allergy (Verified 12/31/17 15:57) itching meclizine HCl [From Antivert] Allergy (Verified 12/31/17 15:57) phenylpropanolamine HCl [From Ornade] Allergy (Verified 12/31/17 15:57) propoxyphene HCl [From Darvon] Allergy (Verified 12/31/17 15:57) tetracycline [Tetracycline] Allergy (Verified 12/31/17 15:57) Any Verts Allergy (Uncoded 12/31/17 15:57) Past Medical History - General Information source: Patient, Relative - Social History Smoking Status: Never Smoker Cigarette use (# per day): No Chew tobacco use (# tins/day): No Smoking Education Provided: No Frequency of alcohol use: None Drug Abuse: None Lives with: Family Family History: Reviewed & Not Pertinent, Other Patient has suicidal ideation: No Patient has homicidal ideation: No - Past Medical History Cardiac Medical History: Reports: Hx Atrial Fibrillation, Hx Heart Attack, Hx Hypertension - MEDS Denies: Hx Heart Murmur Pulmonary Medical History: Reports: Hx Bronchitis, Hx Pneumonia Denies: Hx Asthma, Hx Respiratory Failure, Hx Sleep Apnea, Hx Tuberculosis Neurological Medical History: Denies: Hx Cerebrovascular Accident, Hx Seizures Endocrine Medical History: Reports: Hx Diabetes Mellitus Type 1, Hx Diabetes Mellitus Type 2 Renal/ Medical History: Denies: Hx Peritoneal Dialysis Malignancy Medical History: GI Medical History: Denies: Hx Hepatitis, Hx Hiatal Hernia, Hx Pancreatitis, Hx Ulcer Musculoskeltal Medical History: Reports Hx Arthritis Psychiatric Medical History: Reports: Hx Depression Traumatic Medical History: Infectious Medical History: Denies: Hx Hepatitis Past Surgical History: Reports: Hx Appendectomy, Hx Cardiac Catheterization, Hx Cardiac Surgery - Cath, Hx Cholecystectomy, Hx Hysterectomy. Denies: Hx Mastectomy, Hx Open Heart Surgery, Hx Pacemaker - Immunizations Hx Diphtheria, Pertussis, Tetanus Vaccination: Yes Hx Pneumococcal Vaccination: 10/04/09 Review of Systems - Review of Systems Constitutional: denies: Diaphoresis, Fever, Weakness EENT: Difficulty swallowing. denies: Blurred vision Cardiovascular: Chest pain, Dyspnea. denies: Heart racing, Lightheaded Respiratory: denies: Cough, Short of breath Gastrointestinal: denies: Abdominal pain Genitourinary: denies: Dysuria Female Genitourinary: No symptoms reported Musculoskeletal: Back pain Skin: denies: Rash Hematologic/Lymphatic: denies: No symptoms reported Neurological/Psychological: denies: Confusion Physical Exam - Vital signs Vitals: Temp Pulse Resp BP Pulse Ox 98.0 F 82 18 162/83 H 95 12/31/17 15:21 12/31/17 15:21 12/31/17 15:21 12/31/17 15:21 12/31/17 15:21 - General General appearance: Appears well, Alert - HEENT Head: Normocephalic, Atraumatic Eyes: Normal Pupils: PERRL Neck: Normal, Supple - Respiratory Respiratory status: No respiratory distress. No: Respiratory distress Chest status: Nontender Breath sounds: Normal Chest palpation: Normal - Cardiovascular Rhythm: Regular Heart sounds: Normal auscultation Murmur: No Normal capillary refill: Yes - Abdominal Inspection: Normal Distension: No distension Bowel sounds: Normal Tenderness: Nontender Organomegaly: No organomegaly - Back Back: Normal, Nontender - Extremities General upper extremity: Normal inspection, Nontender, Normal color, Normal ROM , Normal temperature. No: Edema General lower extremity: Normal inspection, Nontender, Normal color, Normal ROM , Normal temperature, Normal weight bearing. No: Edema, Haroldo's sign - Neurological Neuro grossly intact: Yes Cognition: Normal Orientation: AAOx4 [place] Coma Scale Eye Opening: Spontaneous [place] Coma Scale Verbal: Oriented [place] Coma Scale Motor: Obeys Commands [place] Coma Scale Total: 15 Speech: Normal Motor strength normal: LUE, RUE, LLE, RLE Sensory: Normal - Psychological Associated symptoms: Normal affect, Normal mood - Skin Skin Temperature: Warm Skin Moisture: Dry Skin Color: Normal Skin irregularity: negative: Rash Course - Re-evaluation Re-evalutation: 12/31/17 18:52 [facility] contacted for transfer. 12/31/17 18:52 Called to request review of second EKG. I was told that I need to hurry up because he has something to do and that it was my job to read the EKG. When I told him that I had read the EKG and wanted his opinion he again told me I needed to "hurry up". 12/31/17 21:19 87-year-old female with history of coronary artery disease presents with complaint of chest pain that started 3 hours prior to arrival. Patient with an elevated troponin and significant EKG changes indicative of ischemia. Upon arrival vitals reviewed. Patient does not appear toxic or dehydrated. She is in no acute distress. Upon my exam patient is joking and laughing. She will he declines pain medication but later because the pain is increasing. She has received fentanyl. Heparin drip was initiated. Accepted by educational specialist for Dr Mata. Laboratory 12/31/17 12/31/17 12/31/17 17:20 17:20 17:20 WBC 7.0 RBC 5.02 Hgb 14.5 Hct 43.2 MCV 86 MCH 28.8 MCHC 33.5 RDW 17.0 H Plt Count 147 L Seg Neutrophils % 59.8 Lymphocytes % 27.4 Monocytes % 11.3 Eosinophils % 0.7 Basophils % 0.8 Absolute Neutrophils 4.2 Absolute Lymphocytes 1.9 Absolute Monocytes 0.8 Absolute Eosinophils 0.0 Absolute Basophils 0.1 PT INR APTT Sodium 142.9 Potassium 4.3 Chloride 99 Carbon Dioxide 30 Anion Gap 14 BUN 20 Creatinine 0.65 Est GFR ( Amer) > 60 Est GFR (Non-Af Amer) > 60 Glucose 235 H Calcium 10.2 Total Bilirubin 0.6 Direct Bilirubin 0.3 Neonat Total Bilirubin Not Reportable Neonat Direct Bilirubin Not Reportable Neonat Indirect Bili Not Reportable AST 28 ALT 19 Alkaline Phosphatase 42 Creatine Kinase 62 CK-MB (CK-2) 6.31 H Troponin I 1.760 Total Protein 8.4 H Albumin 4.6 12/31/17 12/31/17 12/31/17 17:20 20:35 20:35 WBC 8.3 RBC 4.64 Hgb 13.3 Hct 39.6 MCV 85 MCH 28.6 MCHC 33.5 RDW 16.9 H Plt Count 111 L Seg Neutrophils % 60.2 Lymphocytes % 25.8 Monocytes % 12.9 Eosinophils % 0.5 Basophils % 0.6 Absolute Neutrophils 5.0 Absolute Lymphocytes 2.2 Absolute Monocytes 1.1 Absolute Eosinophils 0.0 Absolute Basophils 0.0 PT 13.7 INR 0.98 APTT 31.5 Sodium Potassium Chloride Carbon Dioxide Anion Gap BUN Creatinine Est GFR ( Amer) Est GFR (Non-Af Amer) Glucose Calcium Total Bilirubin Direct Bilirubin Neonat Total Bilirubin Neonat Direct Bilirubin Neonat Indirect Bili AST ALT Alkaline Phosphatase Creatine Kinase CK-MB (CK-2) Troponin I 2.820 Total Protein Albumin Chest X-Ray 12/31/17 16:25 IMPRESSION: NO ACUTE RADIOGRAPHIC FINDING IN THE CHEST. NO SIGNIFICANT CHANGE FROM PRIOR STUDY. - Vital Signs Vital signs: Temp Pulse Resp BP Pulse Ox 98.1 F 82 12 138/79 H 97 12/31/17 21:26 12/31/17 15:21 12/31/17 21:26 12/31/17 21:26 12/31/17 21:26 - Laboratory Result Diagrams: 12/31/17 20:35 12/31/17 17:20 Laboratory results interpreted by me: 12/31/17 12/31/17 12/31/17 17:20 17:20 17:20 RDW 17.0 H Plt Count 147 L Glucose 235 H CK-MB (CK-2) 6.31 H Total Protein 8.4 H 12/31/17 20:35 RDW 16.9 H Plt Count 111 L Glucose CK-MB (CK-2) Total Protein - Diagnostic Test Radiology reviewed: Image reviewed - EKG Interpretation by Me EKG shows normal: Sinus rhythm [place]/QRS: RBBB Discharge - Discharge Disposition: [facility] [place] Referrals: LA CROW MD [Primary Care Provider] - Follow up as needed
[2017-12-31] MEDS ORDERED: HEPARIN SODIUM,PORCINE/D5W 25,000 UNIT/250 ML RTUINJ IV PRN (19:04)
[2017-12-31] MEDS ORDERED: FENTANYL CITRATE INJ/PF 100 MCG/2 ML AMPUL IV ONE ×2 (19:40→21:07)
[2017-12-31 20:47] LABS: INTERNATIONAL RATION (INR) 0.98; PARTIAL THROMBOPLASTIN TIME 31.5 SEC (23.5-35.8); PROTHROMBIN TIME 13.7 SEC (11.4-15.4)
[2017-12-31 20:49] LABS: ABSOLUTE LYMPHOCYTES (AUTO) 2.2 10^3/uL (0.5-4.7); ABSOLUTE MONOCYTES (AUTO) 1.1 10^3/uL (0.1-1.4); BASOPHILS % (AUTO) 0.6 % (0-2); EOSINOPHILS % (AUTO) 0.5 % (0-6); HEMATOCRIT 39.6 % (36.0-47.0); HEMOGLOBIN 13.3 g/dL (12.0-15.5); LYMPHOCYTES % (AUTO) 25.8 % (13-45); MEAN CORPUSCULAR HEMOGLOBIN 28.6 pg (27.0-33.4); MEAN CORPUSCULAR HGB CONC 33.5 g/dL (32.0-36.0); MEAN CORPUSCULAR VOLUME 85 fl (80-97); MONOCYTES % (AUTO) 12.9 % (3-13); PLATELET COUNT 111 10^3/uL (150-450); RED BLOOD COUNT 4.64 10^6/uL (3.72-5.28); RED CELL DISTRIBUTION WIDTH 16.9 % (11.5-14.0); SEGMENTED NEUTROPHILS % (AUTO) 60.2 % (42-78); TOTAL CELLS COUNTED % (AUTO) 100 %; WHITE BLOOD COUNT 8.3 10^3/uL (4.0-10.5)
[2017-12-31 21:33] VITALS: BP 138/79
--- NOTE | 2018-01-01 10:25 | EKG REPORT ---
SEVERITY:- ABNORMAL ECG - SINUS RHYTHM RBBB AND LAFB : Confirmed by: Krishna Nathan MD 01-Jan-2018 10:25:30
== END 2017-12-31 22:02 | disposition short-term general hospital (02) ==
LOC: ER 15:04
DX: I21.4 Non-ST elevation (NSTEMI) myocardial infarction (principal); R07.9 Chest pain, unspecified; I25.10 Atherosclerotic heart disease of native coronary artery without angina pectoris; I10 Essential (primary) hypertension; I25.2 Old myocardial infarction; R13.10 Dysphagia, unspecified; R06.02 Shortness of breath; Z79.899 Other long term (current) drug therapy
CPT/HCPCS: 93005; 96376; 99285; 96374; 96375; 36415; 82553; 82550; 85025; 85610; 85730; 80053; 84484; 71045; 93010; J1644; A9270; J3010

== ENCOUNTER 2018-09-24 02:47 | Observation (INO) | payer MEDICARE, BC, OTHER ==
--- NOTE | 2018-09-24 03:12 | ER Document Report ---
ED General - General Chief Complaint: Chest Pressure Stated Complaint: CHEST PAIN Time Seen by Provider: 09/24/18 02:56 Notes: Patient is an 88-year-old female who presents with complaint of chest pain. No shortness of breath. No wheezing. Chest pain came on suddenly while she was sent on watching TV. She says it hit her hard in the chest. It was severe for about 4 minutes and then continue to linger. She tried a nitro at home and is helped a little bit. She said when the months came she was given more nitro. She said the ambulance is nitro leave her pain. She did take aspirin immediately after the pain started. She says it feels like previous [place]. She is on multiple medications which she does not know the name of them. She says she does not take them as she should. She had a heart attack back in December of this year. She was sent to [facility] where they did a heart catheterization. Her coronary vessels are too tortuous to be able to stent and therefore she is supposed to be doing medical management which she admits she is not fully compliant with. Currently patient is asymptomatic and feels well. No other complaints at this time. Patient's primary care doctor is Dr. Posadas. TRAVEL OUTSIDE OF THE [place] IN LAST 30 DAYS: No - Related Data Allergies/Adverse Reactions: chlorpheniramine maleate [From Ornade] Allergy (Verified 09/24/18 03:12) codeine [Codeine] Allergy (Verified 09/24/18 03:12) itching meclizine HCl [From Antivert] Allergy (Verified 09/24/18 03:12) phenylpropanolamine HCl [From Ornade] Allergy (Verified 09/24/18 03:12) propoxyphene HCl [From Darvon] Allergy (Verified 09/24/18 03:12) tetracycline [Tetracycline] Allergy (Verified 09/24/18 03:12) Any Verts Allergy (Uncoded 09/24/18 03:12) Past Medical History - Social History Smoking Status: Never Smoker Frequency of alcohol use: None Drug Abuse: None Family History: Reviewed & Not Pertinent, Other - Past Medical History Cardiac Medical History: Reports: Hx Atrial Fibrillation, Hx Heart Attack - 1996 ?STENT, Hx Hypertension - MEDS Denies: Hx Heart Murmur Pulmonary Medical History: Reports: Hx Bronchitis, Hx Pneumonia Denies: Hx Asthma, Hx Respiratory Failure, Hx Sleep Apnea, Hx Tuberculosis Neurological Medical History: Denies: Hx Cerebrovascular Accident, Hx Seizures Endocrine Medical History: Reports: Hx Diabetes Mellitus Type 1, Hx Diabetes Mellitus Type 2 Renal/ Medical History: Denies: Hx Peritoneal Dialysis Malignancy Medical History: GI Medical History: Denies: Hx Hepatitis, Hx Hiatal Hernia, Hx Pancreatitis, Hx Ulcer Musculoskeletal Medical History: Reports Hx Arthritis Psychiatric Medical History: Reports: Hx Depression Traumatic Medical History: Infectious Medical History: Denies: Hx Hepatitis Past Surgical History: Reports: Hx Appendectomy, Hx Cardiac Catheterization, Hx Cardiac Surgery - Cath, Hx Cholecystectomy, Hx Hysterectomy. Denies: Hx Mastectomy, Hx Open Heart Surgery, Hx Pacemaker - Immunizations Hx Diphtheria, Pertussis, Tetanus Vaccination: Yes Hx Pneumococcal Vaccination: 10/04/09 Review of Systems - Review of Systems Notes: My Normal Review Basic REVIEW OF SYSTEMS: CONSTITUTIONAL : Denies fever, chills, or sweats. Denies recent illness. CARDIOVASCULAR: Chest pain RESPIRATORY: Denies cough, cold, or chest congestion. Denies shortness of breath, difficulty breathing, or wheezing. GASTROINTESTINAL: Denies abdominal pain. Denies nausea, vomiting, or diarrhea. MUSCULOSKELETAL: Denies neck or back pain or joint pain or swelling. SKIN: Denies rash or skin lesions. NEUROLOGICAL: Denies altered mental status or loss of consciousness. Denies weakness or paralysis or loss of use of either side. Denies problems with gait or speech. Denies sensory or motor loss. ALL OTHER SYSTEMS REVIEWED AND NEGATIVE. Physical Exam - Vital signs Vitals: Temp 97.8 F 09/24/18 03:00 - Notes Notes: General Appearance: Well nourished, alert, cooperative, no acute distress, no obvious discomfort. Well-appearing. Vitals: reviewed, See vital signs table. Head: no swelling or tenderness to the head Eyes: PERRL, EOMI, Conjuctiva clear Lungs: No wheezing, No rales, No rhonci, No accessory muscle use, good air exchange bilaterally. Heart: Normal rate, Regular rythm, No murmur, no rub Abdomen: Normal BS, soft, No rigidity, No abdominal tenderness, No guarding, no rebound, no abdominal masses, no organomegaly Extremities: strength 5/5 in all extremities, good pulses in all extremities, no swelling or tenderness in the extremities, no edema. Skin: warm, dry, appropriate color, no rash Neuro: speech clear, oriented x 3, normal affect, responds appropriately to questions. Course - Re-evaluation Re-evalutation: 09/24/18 04:37 Patient remains chest pain-free after the nitro. She has Nitropaste on. She looks well. Initial troponin is negative. EEG is normal as well. Patient has history of coronary disease and has not been compliant with medications and does state his pain felt very similar to her previous [place] and therefore think she is appropriate for observation. I did speak with Dr. Posadas, patient's primary care physician, who agrees with plan for admission. Dictation of this chart was performed using voice recognition software; therefore, there may be some unintended grammatical errors. - Vital Signs Vital signs: Temp Pulse Resp BP Pulse Ox 97.8 F 19 120/57 L 96 09/24/18 03:00 09/24/18 05:00 09/24/18 05:00 09/24/18 05:00 - Laboratory Result Diagrams: 09/24/18 03:05 09/24/18 03:05 Laboratory results interpreted by me: 09/24/18 09/24/18 03:05 03:05 RDW 16.5 H Plt Count 97 L Monocytes % 14.2 H Glucose 115 H - EKG Interpretation by Me Additional EKG results interpreted by me: 09/24/18 03:11 EKG is reviewed and interpreted by me. EKG shows sinus rhythm at a rate of [address] segment elevation or depression. Patient has a right bundle branch block which is unchanged comparison to the previous EKG from December 31, 2017. TX interval is within normal range. QRS duration is prolonged. QT interval is borderline. Discharge - Discharge Clinical Impression: Chest pain Qualifiers: Chest pain type: unspecified Qualified Code(s): R07.9 - Chest pain, unspecified Condition: Stable Disposition: ADMITTED OBSERVATION Admitting Provider: [facility] Admitted: Telemetry
[2018-09-24 03:23] LABS: ALANINE AMINOTRANSFERASE 13 U/L (9-52); ALBUMIN 3.7 g/dL (3.5-5.0); ALKALINE PHOSPHATASE 50 U/L (38-126); ANION GAP 9 (5-19); ASPARTATE AMINO TRANSFERASE 18 U/L (14-36); BILIRUBIN,DIRECT 0.3 mg/dL (0.0-0.4); BILIRUBIN,TOTAL 0.4 mg/dL (0.2-1.3); BLOOD UREA NITROGEN 16 mg/dL (7-20); CALCIUM 9.4 mg/dL (8.4-10.2); CARBON DIOXIDE 28 mmol/L (22-30); CHLORIDE 103 mmol/L (98-107); GLUCOSE 115 mg/dL (75-110); POTASSIUM 3.8 mmol/L (3.6-5.0); SODIUM 139.8 mmol/L (137-145); TOTAL PROTEIN 7.2 g/dL (6.3-8.2)
[2018-09-24] MEDS ORDERED: NITROGLYCERIN 2% OINTMENT 1 GM PACKET TP ONE (03:24)
[2018-09-24 03:35] LABS: ABSOLUTE BASOPHILS # (AUTO) 0.1 10^3/uL (0.0-0.2); ABSOLUTE LYMPHOCYTES (AUTO) 2.1 10^3/uL (0.5-4.7); ABSOLUTE MONOCYTES (AUTO) 0.8 10^3/uL (0.1-1.4); ABSOLUTE NEUT (AUTO) 2.5 10^3/uL (1.7-8.2); EOSINOPHILS % (AUTO) 0.6 % (0-6); HEMATOCRIT 39.4 % (36.0-47.0); HEMOGLOBIN 13.3 g/dL (12.0-15.5); LYMPHOCYTES % (AUTO) 37.8 % (13-45); MEAN CORPUSCULAR HEMOGLOBIN 28.9 pg (27.0-33.4); MEAN CORPUSCULAR HGB CONC 33.8 g/dL (32.0-36.0); MEAN CORPUSCULAR VOLUME 86 fl (80-97); MONOCYTES % (AUTO) 14.2 % (3-13); RED BLOOD COUNT 4.61 10^6/uL (3.72-5.28); RED CELL DISTRIBUTION WIDTH 16.5 % (11.5-14.0); SEGMENTED NEUTROPHILS % (AUTO) 46.4 % (42-78); TOTAL CELLS COUNTED % (AUTO) 100 %; WHITE BLOOD COUNT 5.5 10^3/uL (4.0-10.5)
--- NOTE | 2018-09-24 03:41 | RADIOLOGY REPORT (SQ) ---
EXAM DESCRIPTION: XR CHEST 1 VIEW COMPLETED DATE/TME: 09/24/2018 02:59 CLINICAL HISTORY: 88 years Female, chest pain COMPARISON:12/31/2017 NUMBER OF VIEWS/TECHNIQUE: 1/AP FINDINGS: Adequate lung volume, small chronic atelectasis or scar of the right upper lobe, prominent interstitium, normal cardiac silhouette, atherosclerosis, and intact bony thorax. IMPRESSION: No acute cardiopulmonary findings.
[2018-09-24 03:46] LABS: PLATELET COUNT 97 10^3/uL (150-450)
[2018-09-24] MEDS ORDERED: ASPIRIN 81 MG TABLET, ENT COATED PO SCH (06:00)
[2018-09-24] MEDS ORDERED: ASPIRIN 81 MG TABLET, ENT COATED PO ONE (06:00)
[2018-09-24 06:06] LABS: INTERNATIONAL RATION (INR) 1.13; PROTHROMBIN TIME 15.1 SEC (11.4-15.4)
[2018-09-24 06:07] LABS: PARTIAL THROMBOPLASTIN TIME 33.7 SEC (23.5-35.8)
[2018-09-24 06:44] LABS: APPEARANCE,URINE CLEAR; BILIRUBIN,URINE NEGATIVE (NEGATIVE); COLOR,URINE YELLOW; GLUCOSE, URINE 150 mg/dL (NEGATIVE); KETONES,URINE NEGATIVE (NEGATIVE); LEUKOCYTE ESTERASE,URINE TRACE (NEGATIVE); NITRITE,URINE NEGATIVE (NEGATIVE); PROTEIN,URINE NEGATIVE (NEGATIVE); URINE SPECIFIC GRAVITY 1.005; UROBILINOGEN,URINE NEGATIVE mg/dL (<2.0)
[2018-09-24] MEDS ORDERED: DEXTROSE 50%-WATER SYRINGE 25 GM/50 ML DOSE IV PRN (08:00)
[2018-09-24] MEDS ORDERED: GLUCAGON,HUMAN RECOMB 1 MG INJ IM PRN (08:00)
[2018-09-24] MEDS ORDERED: DEXTROSE 40% GEL 15 GM TUBE X 2 PO PRN (08:00)
[2018-09-24] MEDS ORDERED: DEXTROSE 40% GEL 15 GM TUBE PO PRN (08:00)
[2018-09-24] MEDS ORDERED: INSULIN LISPRO 100 UNIT/ML 3 ML VIAL SUBCUT PRN (08:00)
[2018-09-24] MEDS ORDERED: DEXTROSE 50%-WATER SYRINGE 12.5 GM/25 ML DOSE IV PRN (08:00)
[2018-09-24] MEDS ORDERED: ACETAMINOPHEN 325 MG TABLET PO PRN (08:49)
[2018-09-24 09:54] LABS: CREATINE KINASE MB 0.85 ng/mL (<4.55)
[2018-09-24 09:55] LABS: TROPONIN I < 0.012 ng/mL
[2018-09-24] MEDS ORDERED: (PENDING PHARMACY ID) (Fexofenadine Hcl [Allegra Allergy] 180 MG) PO SCH (13:15)
[2018-09-24] MEDS ORDERED: (PENDING PHARMACY ID) (Insulin Aspart [Novolog Insulin (Aspart) 100 Unit/Ml] 10 UNIT) SQ SCH (14:00)
[2018-09-24] MEDS ORDERED: HYDROCODONE/ACETAMINOPHEN 10-325 MG TABLET PO SCH (15:00)
[2018-09-24] MEDS ORDERED: GABAPENTIN 100 MG CAPSULE PO SCH (15:00)
[2018-09-24] MEDS ORDERED: AMIODARONE HCL 200 MG TABLET PO SCH (15:30)
[2018-09-24] MEDS ORDERED: CLOPIDOGREL BISULFATE 75 MG TABLET PO SCH (15:30)
[2018-09-24] MEDS ORDERED: ISOSORBIDE MONONITRATE 60 MG TAB.ER.24H PO SCH (15:30)
[2018-09-24 16:05] VITALS: BP 151/67
[2018-09-24 16:08] LABS: TROPONIN I < 0.012 ng/mL
--- NOTE | 2018-09-24 16:23 | RADIOLOGY REPORT (SQ) ---
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 Images reviewed with lung, soft tissue and bone windows. Reconstructed coronal and sagittal MPR images reviewed. All images st ored on PACS. All CT scanners at this facility use dose modulation, iterative reconstruction, and/or weight based d osing when appropriate to reduce radiation dose to as low as reasonably achievable (ALARA). [facility]: Dose Right [facility]: CareDose [facility]: Dose Right [facility]: Teradose 4D [facility]: [place] RADIATION DOSE: CT Rad equipment meets quality standard of care and radiation dose reduction techniq ues were employed. CTDIvol: 13.3 mGy. DLP: 448 mGy-cm. mGy. LIMITATIONS: No technical limitations. FINDINGS: LUNGS AND PLEURA: Stable apical predominant interstitial fibrotic scarring and volume loss . There is no acute appearing airspace opacity. HILAR AND MEDIASTINAL STRUCTURES: No identified masses or abnormal nodes. No obvious aneurysm. HEART AND VASCULAR STRUCTURES: No aneurysm. No pericardial effusion. Coronary artery and thoracic a ortic calcifications. UPPER ABDOMEN: No significant findings. Limited exam. THYROID AND OTHER SOFT TISSUES: No masses. No adenopathy. BONES: No significant finding. HARDWARE: None in the chest. OTHER: No other significant findings. IMPRESSION: Stable apical predominant interstitial fibrotic scarring and volume loss. No acute appe aring airspace opacity. 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 TECHNICAL DOCUMENTATION: JOB ID: [id number] Quality ID # [id number]: Final reports with documentation of one or more dose reduction techniques (e.g., Au tomated exposure control, adjustment of the mA and/or kV according to patient size, use of iterative reconstruction technique) 2010 [employer]- All Rights Reserved Reading location - IP/workstation name: [email or web address]
[2018-09-24] MEDS ORDERED: INSULIN LISPRO 100 UNIT/ML 3 ML VIAL SUBCUT SCH (17:00)
[2018-09-24] MEDS ORDERED: HYDROCODONE/ACETAMINOPHEN 10-325 MG TABLET PO ONE (17:34)
--- NOTE | 2018-09-24 17:34 | PDOC H&P ---
History of Present Illness Admission Date/PCP: 09/24/18 04:35 AL CROW MD History of Present Illness: SABINO GARCIA is a 88 year old female, she has a history of coronary artery disease, diabetes mellitus type 2, she came to the emergency room last night for evaluation of acute onset chest pain, the chest pain is atypical in character, she felt a chest pressure, she thought she was having TX. In the emergency room she was evaluated, hospital admission was advised. When I saw her on the floor she had no more chest pain, on chest auscultation there was dry crackles, CT chest without contrast was done, it demonstrated stable apical predominant interstitial fibrotic scarring and volume loss there is no acute appearing airspace opacity. Past Medical History Cardiac Medical History: Reports: Atrial Fibrillation, Myocardial Infarction - 1996 ?STENT, Hypertension - [facility] Pulmonary Medical History: Reports: Bronchitis, Pneumonia Endocrine Medical History: Reports: Diabetes Mellitus Type 2 Malignancy Medical History: GI Medical History: Musculoskeltal Medical History: Reports: Arthritis Psychiatric Medical History: Reports: Depression Infectious Medical History: Past Surgical History Past Surgical History: Reports: Appendectomy, Cardiac Catheterization, Cholecystectomy, Hysterectomy Social History Smoking Status: Former Smoker Frequency of Alcohol Use: None Hx Recreational Drug Use: No Drugs: None Hx Prescription Drug Abuse: No - Advance Directive Resuscitation Status: Full Code Family History Family History: Reviewed & Not Pertinent, Other Parental Family History Reviewed: Yes Children Family History Reviewed: Yes Sibling(s) Family History Reviewed.: Yes Medication/Allergy Home Medications: Clopidogrel Bisulfate [Plavix 75 mg Tablet] 75 mg PO DAILY 09/24/18 Dextrose 50%-Water [Dextrose Inj 50% Syringe (25 gm/50 ml)] 25 gm IV PRN PRN disp.syrin 09/24/18 Dextrose [Glutose 40% Gel 15 gm Tube] 30 gm PO PRN PRN tube 09/24/18 Diclofenac Epolamine [Flector] 1 each TP BID 09/24/18 Fexofenadine HCl [Dorita Allergy] 180 mg PO DAILY 09/24/18 Gabapentin [Neurontin 100 mg Capsule] 100 mg PO Q8 09/24/18 Hydrocodone/Acetaminophen [[place] 10-325 mg Tablet] 1 tab PO Q8 #90 tablet 09/24/18 Insulin Aspart [Novolog Insulin (Aspart) 100 unit/mL] 10 unit SQ TID 09/24/18 Insulin Detemir [Levemir Insulin 100 units/mL] 20 unit SUBCUT QAM 09/24/18 Isosorbide Mononitrate [Imdur 60 mg Tablet.er] 60 mg PO DAILY 09/24/18 Pantoprazole Sodium [Protonix] 40 mg PO DAILY 09/24/18 Allergies/Adverse Reactions: chlorpheniramine maleate [From Ornade] Allergy (Verified 09/24/18 03:12) codeine [Codeine] Allergy (Verified 09/24/18 03:12) itching meclizine HCl [From Antivert] Allergy (Verified 09/24/18 03:12) phenylpropanolamine HCl [From Ornade] Allergy (Verified 09/24/18 03:12) propoxyphene HCl [From Darvon] Allergy (Verified 09/24/18 03:12) tetracycline [Tetracycline] Allergy (Verified 09/24/18 03:12) Any Verts Allergy (Uncoded 09/24/18 03:12) Review of Systems Constitutional: PRESENT: fatigue Eyes: ABSENT: visual disturbances Ears: ABSENT: hearing changes Cardiovascular: PRESENT: chest pain Respiratory: ABSENT: cough, hemoptysis Gastrointestinal: ABSENT: abdominal pain, constipation, diarrhea, hematemesis, hematochezia, nausea, vomiting Genitourinary: ABSENT: dysuria, hematuria Musculoskeletal: ABSENT: joint swelling Integumentary: ABSENT: rash, wounds Neurological: ABSENT: abnormal gait, abnormal speech, confusion, dizziness, focal weakness, syncope Psychiatric: ABSENT: anxiety, depression, homidical ideation, suicidal ideation Endocrine: ABSENT: cold intolerance, heat intolerance, menstrual abnormalities, polydipsia, polyuria Hematologic/Lymphatic: ABSENT: easy bleeding, easy bruising, lymphadenopathy Physical Exam Vital Signs: Temp Pulse Resp BP Pulse Ox 98.3 F 70 18 151/67 H 98 09/24/18 15:24 09/24/18 15:24 09/24/18 15:24 09/24/18 15:24 09/24/18 15:24 Intake & Output 09/23/18 09/24/18 09/25/18 06:59 06:59 06:59 Intake Total 318 Balance 318 Weight 81 kg 78.4 kg General appearance: PRESENT: no acute distress Head exam: PRESENT: atraumatic, normocephalic Eye exam: PRESENT: PERRLA Ear exam: PRESENT: normal external ear exam Mouth exam: PRESENT: moist, tongue midline Neck exam: PRESENT: full ROM Respiratory exam: PRESENT: crackles Cardiovascular exam: PRESENT: RRR, +S1, +S2 GI/Abdominal exam: PRESENT: normal bowel sounds, soft Rectal exam: PRESENT: deferred Neurological exam: PRESENT: alert, CN II-XII grossly intact Psychiatric exam: PRESENT: appropriate affect, normal mood Skin exam: PRESENT: dry, intact, warm Results Laboratory Results: 09/24/18 03:05 09/24/18 03:05 09/24/18 09/24/18 09/24/18 03:05 03:05 03:05 WBC 5.5 RBC 4.61 Hgb 13.3 Hct 39.4 MCV 86 MCH 28.9 MCHC 33.8 RDW 16.5 H Plt Count 97 L Seg Neutrophils % 46.4 Lymphocytes % 37.8 Monocytes % 14.2 H Eosinophils % 0.6 Basophils % 1.0 Absolute Neutrophils 2.5 Absolute Lymphocytes 2.1 Absolute Monocytes 0.8 Absolute Eosinophils 0.0 Absolute Basophils 0.1 Sodium 139.8 Potassium 3.8 Chloride 103 Carbon Dioxide 28 Anion Gap 9 BUN 16 Creatinine 0.86 Est GFR ( Amer) > 60 Est GFR (Non-Af Amer) > 60 Glucose 115 H Calcium 9.4 Phosphorus 2.8 Total Bilirubin 0.4 AST 18 ALT 13 Alkaline Phosphatase 50 Total Protein 7.2 Albumin 3.7 Urine Color Urine Appearance Urine pH Ur Specific [place] Urine Protein Urine Glucose (UA) Urine Ketones Urine Blood Urine Nitrite Ur Leukocyte Esterase Urine WBC (Auto) Urine RBC (Auto) 09/24/18 05:20 WBC RBC Hgb Hct MCV MCH MCHC RDW Plt Count Seg Neutrophils % Lymphocytes % Monocytes % Eosinophils % Basophils % Absolute Neutrophils Absolute Lymphocytes Absolute Monocytes Absolute Eosinophils Absolute Basophils Sodium Potassium Chloride Carbon Dioxide Anion Gap BUN Creatinine Est GFR ( Amer) Est GFR (Non-Af Amer) Glucose Calcium Phosphorus Total Bilirubin AST ALT Alkaline Phosphatase Total Protein Albumin Urine Color YELLOW Urine Appearance CLEAR Urine pH 5.0 Ur Specific [place] 1.005 Urine Protein NEGATIVE Urine Glucose (UA) 150 H Urine Ketones NEGATIVE Urine Blood NEGATIVE Urine Nitrite NEGATIVE Ur Leukocyte Esterase TRACE H Urine WBC (Auto) 0 Urine RBC (Auto) 1 12/22/18 12/22/18 12/22/18 03:05 09:19 15:30 CK-MB (CK-2) 0.85 0.70 Troponin I < 0.012 < 0.012 < 0.012 Impressions: Chest CT 09/24/18 00:00 IMPRESSION: Stable apical predominant interstitial fibrotic scarring and volume loss. No acute appearing airspace opacity. Findings may be related to chronic fibrotic pulmonary disease such as hypersensitivity pneumonitis. Chest X-Ray 09/24/18 02:59 IMPRESSION: No acute cardiopulmonary findings. Assessment & Plan - Diagnosis (1) Chest pain Qualifiers: Chest pain type: unspecified Qualified Code(s): R07.9 - Chest pain, unspecified Is this a current diagnosis for this admission?: Yes Plan: The chest pain is atypical, it is probably related to pulmonary disease, she has pulmonary fibrosis, she is advised to stop amiodarone, amiodarone is associated with pulmonary fibrosis (2) Pulmonary fibrosis Is this a current diagnosis for this admission?: Yes (3) Spinal stenosis Qualifiers: Spinal region: lumbosacral Qualified Code(s): M48.07 - Spinal stenosis, lumbosacral region Is this a current diagnosis for this admission?: Yes
--- NOTE | 2018-09-24 17:42 | PDOC DISCHARGE SUMMARY ---
General - Admit/Disc Date/PCP Admission Date/Primary Care Provider: 09/24/18 04:35 AL CROW MD Discharge Date: 09/24/18 - Discharge Diagnosis (1) Chest pain Is this a current diagnosis for this admission?: Yes (2) Pulmonary fibrosis Is this a current diagnosis for this admission?: Yes (3) Spinal stenosis Is this a current diagnosis for this admission?: Yes - Additional Information Resuscitation Status: Full Code Prescriptions: Hydrocodone/Acetaminophen [[place] 10-325 mg Tablet] 1 tab PO Q8 #90 tablet Home Medications: Clopidogrel Bisulfate [Plavix 75 mg Tablet] 75 mg PO DAILY 09/24/18 Dextrose 50%-Water [Dextrose Inj 50% Syringe (25 gm/50 ml)] 25 gm IV PRN PRN disp.syrin 09/24/18 Dextrose [Glutose 40% Gel 15 gm Tube] 30 gm PO PRN PRN tube 09/24/18 Diclofenac Epolamine [Flector] 1 each TP BID 09/24/18 Fexofenadine HCl [Dorita Allergy] 180 mg PO DAILY 09/24/18 Gabapentin [Neurontin 100 mg Capsule] 100 mg PO Q8 09/24/18 Hydrocodone/Acetaminophen [[place] 10-325 mg Tablet] 1 tab PO Q8 #90 tablet 09/24/18 Insulin Aspart [Novolog Insulin (Aspart) 100 unit/mL] 10 unit SQ TID 09/24/18 Insulin Detemir [Levemir Insulin 100 units/mL] 20 unit SUBCUT QAM 09/24/18 Isosorbide Mononitrate [Imdur 60 mg Tablet.er] 60 mg PO DAILY 09/24/18 Pantoprazole Sodium [Protonix] 40 mg PO DAILY 09/24/18 History of Present Illness History of Present Illness: SABINO GARCIA is a 88 year old female, she has a history of coronary artery disease, diabetes mellitus type 2, she came to the emergency room last night for evaluation of acute onset chest pain, the chest pain is atypical in character, she felt a chest pressure, she thought she was having TX. In the emergency room she was evaluated, hospital admission was advised. When I saw her on the floor she had no more chest pain, on chest auscultation there was dry crackles, CT chest without contrast was done, it demonstrated stable apical predominant interstitial fibrotic scarring and volume loss there is no acute appearing airspace opacity. Hospital Course Hospital Course: Patient was admitted for the management of chest pain, she had 3 sets of cardiac enzymes negative for acute TX, she has pulmonary fibrosis, advised to stop amiodarone, the chest pain is atypical unlikely to be cardiac related chest pain Physical Exam Vital Signs: Temp Pulse Resp BP Pulse Ox 98.3 F 70 18 151/67 H 98 09/24/18 15:24 09/24/18 15:24 09/24/18 15:24 09/24/18 15:24 09/24/18 15:24 Intake & Output 09/23/18 09/24/18 09/25/18 06:59 06:59 06:59 Intake Total 318 Balance 318 Weight 81 kg 78.4 kg General appearance: PRESENT: no acute distress Eye exam: PRESENT: PERRLA Respiratory exam: PRESENT: rales Cardiovascular exam: PRESENT: +S1, +S2 GI/Abdominal exam: PRESENT: soft Neurological exam: PRESENT: alert, CN II-XII grossly intact Results Laboratory Results: 09/24/18 03:05 09/24/18 03:05 09/24/18 09/24/18 09/24/18 03:05 03:05 03:05 WBC 5.5 RBC 4.61 Hgb 13.3 Hct 39.4 MCV 86 MCH 28.9 MCHC 33.8 RDW 16.5 H Plt Count 97 L Seg Neutrophils % 46.4 Lymphocytes % 37.8 Monocytes % 14.2 H Eosinophils % 0.6 Basophils % 1.0 Absolute Neutrophils 2.5 Absolute Lymphocytes 2.1 Absolute Monocytes 0.8 Absolute Eosinophils 0.0 Absolute Basophils 0.1 Sodium 139.8 Potassium 3.8 Chloride 103 Carbon Dioxide 28 Anion Gap 9 BUN 16 Creatinine 0.86 Est GFR ( Amer) > 60 Est GFR (Non-Af Amer) > 60 Glucose 115 H Calcium 9.4 Phosphorus 2.8 Total Bilirubin 0.4 AST 18 ALT 13 Alkaline Phosphatase 50 Total Protein 7.2 Albumin 3.7 Urine Color Urine Appearance Urine pH Ur Specific [place] Urine Protein Urine Glucose (UA) Urine Ketones Urine Blood Urine Nitrite Ur Leukocyte Esterase Urine WBC (Auto) Urine RBC (Auto) 09/24/18 05:20 WBC RBC Hgb Hct MCV MCH MCHC RDW Plt Count Seg Neutrophils % Lymphocytes % Monocytes % Eosinophils % Basophils % Absolute Neutrophils Absolute Lymphocytes Absolute Monocytes Absolute Eosinophils Absolute Basophils Sodium Potassium Chloride Carbon Dioxide Anion Gap BUN Creatinine Est GFR ( Amer) Est GFR (Non-Af Amer) Glucose Calcium Phosphorus Total Bilirubin AST ALT Alkaline Phosphatase Total Protein Albumin Urine Color YELLOW Urine Appearance CLEAR Urine pH 5.0 Ur Specific [place] 1.005 Urine Protein NEGATIVE Urine Glucose (UA) 150 H Urine Ketones NEGATIVE Urine Blood NEGATIVE Urine Nitrite NEGATIVE Ur Leukocyte Esterase TRACE H Urine WBC (Auto) 0 Urine RBC (Auto) 1 09/24/18 09/24/18 09/24/18 03:05 09:19 15:30 CK-MB (CK-2) 0.85 0.70 Troponin I < 0.012 < 0.012 < 0.012 Impressions: Chest CT 09/24/18 00:00 IMPRESSION: Stable apical predominant interstitial fibrotic scarring and volume loss. No acute appearing airspace opacity. Findings may be related to chronic fibrotic pulmonary disease such as hypersensitivity pneumonitis. Chest X-Ray 09/24/18 02:59 IMPRESSION: No acute cardiopulmonary findings. Qualifiers - * PATIENT BEING DISCHARGED WITH ANY OF THE FOLLOWING DIAGNOSIS: No
[2018-09-24] MEDS ORDERED: DICLOFENAC EPOLAMINE TP SCH (18:00)
[2018-09-25] MEDS ORDERED: LANSOPRAZOLE 30 MG TAB.RAP.DR PO SCH (06:00)
[2018-09-25] MEDS ORDERED: INSULIN DETEMIR 100 UNIT/ML 3 ML PEN SUBCUT SCH (08:00)
[2018-09-25] MEDS ORDERED: ASPIRIN 81 MG TABLET, ENT COATED PO SCH (10:00)
[2018-09-25] MEDS ORDERED: LORATADINE 10 MG TABLET PO SCH (10:00)
--- NOTE | 2018-09-26 13:34 | EKG REPORT ---
SEVERITY:- ABNORMAL ECG - SINUS RHYTHM RIGHT BUNDLE BRANCH BLOCK : Confirmed by: Charly Rebollar 26-Sep-2018 13:34:38
== END 2018-09-24 18:25 | disposition home or self-care (01) ==
LOC: ER 02:47 → EH 04:35 → 3N 06:44
PROVIDERS: ADMIT Internal Medicine; ATTEND Internal Medicine
DX: R07.9 Chest pain, unspecified (principal); I25.2 Old myocardial infarction; I10 Essential (primary) hypertension; I25.10 Atherosclerotic heart disease of native coronary artery without angina pectoris; J84.10 Pulmonary fibrosis, unspecified; M48.07 Spinal stenosis, lumbosacral region; E11.9 Type 2 diabetes mellitus without complications; Z87.891 Personal history of nicotine dependence; Z79.899 Other long term (current) drug therapy; Z79.4 Long term (current) use of insulin; Z88.5 Allergy status to narcotic agent; Z88.1 Allergy status to other antibiotic agents
CPT/HCPCS: 93005; 99285; 36415; 82553; 82962; 84100; 85025; 85610; 85730; 80053; 81001; 84484; 71045; 71250; 93010; A9270 ×9; J3490; G0378; J1815